=== PATIENT | male | born 1995 | race Caucasian/White ===

== ENCOUNTER 2017-08-06 11:44 | Emergency (ER) | payer SELFPAY ==
[2017-08-06 12:07] VITALS: BP 114/65
[2017-08-06] MEDS ORDERED: Ketorolac INJ* 60 MG/2 ML VIAL IM ONE (13:00)
--- NOTE | 2017-08-06 13:04 | UC ---
Dental HPI - HPI Summary HPI Summary: Pt here w/ mouth wide dental/jaw pain x 2 days (no one tooth hurts more than any other). Worse w/ cold water and chewing meat - is able to drink fluids otherwise and eat soft foods otherwise. Also has some neck soreness with this at times. Fullness in ears at times. Denies fever, chills, ST, rhinorrhea, sneezing, coughing, ab pain, nausea, vomiting, diarrhea. Still has wisdom teeth. 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 No recent trauma to head/jaw. 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 - Allergies/Home Medications Allergies/Adverse Reactions: Allergies Allergy/AdvReac Type Severity Reaction Status Date / Time No Known Allergies Allergy Verified 08/06/17 12:07 PMH/Surg Hx/FS Hx/Imm Hx Previously Healthy: Yes - Surgical History Surgical History: Yes Surgery Procedure, Year, and Place: bilateral tubes to ears aas child - Family History Known Family History: Positive: None - Social History Occupation: Employed Full-time - [employer] Lives: With Family Alcohol Use: Rare Substance Use Type: None Smoking Status (MU): Never Smoked Tobacco Type: Smokeless Tobacco - < 1 tin per day - Immunization History Most Recent Tetanus Shot: unknown Review of Systems Constitutional: Negative Skin: Negative Eyes: Negative ENT: Dental Pain - see HPI Cardiovascular: Negative Gastrointestinal: Negative Genitourinary: Negative Motor: Negative Neurovascular: Negative Musculoskeletal: Other: - see HPI Neurological: Negative Psychological: Negative - denies anxiety, stress but 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 club manager states they planning a wedding in August - they also have an Is Patient Immunocompromised?: No All Other Systems Reviewed And Are Negative: Yes Physical Exam Triage Information Reviewed: Yes Appearance: Well-Appearing, No Pain Distress, Well-Nourished Vital Signs: Initial Vital Signs Temp 99.4 F 08/06/17 12:00 Pulse 61 08/06/17 12:00 Resp 17 08/06/17 12:00 BP 114/65 08/06/17 12:00 Pulse Ox 99 08/06/17 12:00 Vital Signs Reviewed: Yes Eye Exam: Normal Eyes: Positive: Conjunctiva Clear ENT Exam: Normal ENT: Positive: Normal ENT inspection, Hearing grossly normal, Pharynx normal, TMs normal - old opaque scarring - pt admits to h/o myringotomy as child. Negative: Pharyngeal erythema, Nasal congestion, Tonsillar swelling, Tonsillar exudate, Trismus Dental: Positive: Other: - TTP over gingiva of posterior most molars (wisdom teeth areas) - wisdom teeth appear to have broken through a few areas - no erythema, no bleeding, no lesions; other areas of gingiva are NTTP - no edema at all in mouth. Negative: Percussion Tenderness @, Gross Decay/Caries @, Dental Fracture @, Abscess @ Neck exam: Normal Neck: Positive: Supple, Nontender, No Lymphadenopathy Respiratory Exam: Normal Respiratory: Positive: Lungs clear, Normal breath sounds Cardiovascular Exam: Normal Cardiovascular: Positive: RRR Abdominal Exam: Normal Abdomen Description: Positive: Nontender, No Organomegaly, Soft Bowel Sounds: Positive: Present Musculoskeletal Exam: Normal Musculoskeletal: Positive: Strength Intact Neurological Exam: Normal Neurological: Positive: Alert Psychological Exam: Normal Skin Exam: Normal Dental Complaint Course/Dx - Course Course Of Treatment: Pt presents with mouth wide dental/jaw pain. Based on exam and HPI, suspect wisdom teeth are moving, possible impacted. Unfortunately, no panorex available here and CT is not warranted - risk of radiation does not outweigh benefit of this type of image - recommend f/u w/ dentist/oral surgeon for panorex. Reviewed danger s/sx of when to go to ED. Pt agrees w/ plan. No signs of infection so no anbx started today. - Differential Dx/Diagnosis Provider Diagnoses: Oral pain Discharge - Discharge Plan Condition: Stable Disposition: HOME Prescriptions: Cyclobenzaprine TAB* [Flexeril 10 MG TAB*] 10 mg PO TID PRN #15 tab PRN Reason: Pain Ibuprofen TAB* [Motrin TAB* 600 MG] 600 mg PO Q6H PRN #20 tab PRN Reason: Pain Patient Education Materials: Toothache (ED), Muscle Strain (ED) Referrals: Berhane Brizuela MD [Doctor of Dental Medicine] - Additional Instructions: You appear to be having issue with your wisdom teeth and/or possible muscle strain from clenching jaw. Either way, you can follow-up with your dentist for imaging to better assess your wisdom teeth status. If it is necessary for you to see an oral surgeon, contact information has been included here. In the meantime, you may continue fluids and soft foods to prevent dehydration and malnourishment. You may also take ibuprofen 600mg every 6 hours for pain - take with food. You were also given a muscle relaxer you may try at night for pain - do not take prior to working, driving as this may cause drowsiness. *If you develop headache, neck stiffness, fever, chills, vomiting, chest pain, difficulty breathing, go to ED
== END 2017-08-06 13:16 | disposition home or self-care (01) ==
LOC: UCEAST 11:44
DX: K13.79 Other lesions of oral mucosa (principal)
CPT/HCPCS: 96372; 99212; G0463; J1885

== ENCOUNTER 2017-08-07 14:46 | Emergency (ER) | payer BC ==
[2017-08-07 15:00] VITALS: BP 120/67
--- NOTE | 2017-08-07 21:25 | ED ---
Throat Pain/Nasal Congestion - HPI Summary HPI Summary: Patient presents to the ED with dental pain bilaterally which radiates into the ears x 7 days. [facility] given [facility] relaxers with relief. However, since he was unable to take during the day while he was working and noticed the pain return. He states he had a mild MONTERO earlier this afternoon, but that has resolved. He denies knowingly clenching his teeth, grinding his teeth or sinus infections. He has never had dental infections before, but has not had good dental care. Denies other symptoms including ear pain, eye pain or stiff neck. Denies fevers, sweats or chills. - History of Current Complaint Chief Complaint: EDDentalPain Time Seen by Provider: 08/07/17 15:13 Hx Obtained From: Patient Onset/Duration: Sudden Onset Severity: Mild Associated Signs And Symptoms: Positive: Negative - Allergies/Home Medications Allergies/Adverse Reactions: Allergies Allergy/AdvReac Type Severity Reaction Status Date / Time No Known Allergies Allergy Verified 08/06/17 12:07 PMH/Surg Hx/FS Hx/Imm Hx Previously Healthy: Yes - Surgical History Surgery Procedure, Year, and Place: bilateral tubes to ears aas child - Immunization History Hx Pertussis Vaccination: No Immunizations Up to Date: Unable to Obtain/Confirm Infectious Disease History: Yes Infectious Disease History: Denies: History Other Infectious Disease, Traveled Outside the [place] in Last 30 Days - Family History Known Family History: Positive: None - Social History Occupation: Employed Full-time Lives: With Family Alcohol Use: Rare Hx Substance Use: No Substance Use Type: Reports: None Hx Tobacco Use: No Smoking Status (MU): Never Smoked Tobacco Type: Smokeless Tobacco - < 1 tin per day Review of Systems Constitutional: Negative Eyes: Negative Positive: Dental Pain Cardiovascular: Negative Respiratory: Negative Positive: no symptoms reported, see HPI Musculoskeletal: Negative Neurological: Negative Psychological: Normal All Other Systems Reviewed And Are Negative: Yes Physical Exam Triage Information Reviewed: Yes Vital Signs On Initial Exam: Initial Vitals Temp Pulse Resp BP Pulse Ox 99.0 F 89 20 120/67 98 08/07/17 14:57 08/07/17 14:57 08/07/17 14:57 08/07/17 14:57 08/07/17 14:57 Vital Signs Reviewed: Yes Appearance: Positive: Well-Appearing, Well-Nourished Skin: Positive: Warm, Skin Color Reflects Adequate Perfusion Head/Face: Positive: Normal Head/Face Inspection Eyes: Positive: EOMI, PAPI Neck: Positive: Supple, No Lymphadenopathy Respiratory/Lung Sounds: Positive: Clear to Auscultation, Breath Sounds Present Cardiovascular: Positive: Normal, RRR, Pulses are Symmetrical in both Upper and Lower Extremities Musculoskeletal: Positive: Normal, Strength/ROM Intact Neurological: Positive: Speech Normal Psychiatric: Positive: Normal AVPU Assessment: Alert - Ariana Coma Scale Coma Scale Total: 15 Diagnostics - Vital Signs Vital Signs Temp Pulse Resp BP Pulse Ox 08/07/17 14:57 99.0 F 89 20 120/67 98 - Laboratory Lab Statement: Any lab studies that have been ordered have been reviewed, and results considered in the medical decision making process. EENT Course/Dx - Course Course Of Treatment: Patient has been experiencing dental pain x 7 days intermittently. He feels as though it is a "tightening" of the jaw. He was given a muscle relaxer with relief. The pain runs directly through his teeth he states. He denies any known sinus infections. Discussed treatment options with patient. D/t continuing pain located in the teeth - possibly could be an infection. Discussed trying abx and some pain management only as needed at bedtime. He agrees to this plan and will return if the symptoms continue. Ibuprofen is encouraged. - Differential Diagnoses Differential Diagnoses: Mandibular/Maxillary Trauma, Odontogenic Pain, Trigeminal Neuralgia, TMJ Syndrome - Diagnoses Provider Diagnoses: Tooth pain Discharge - Discharge Plan Condition: Stable Disposition: HOME Prescriptions: HYDROcodone/ACETAMIN 5-325 MG* [Hamilton 5-325 TAB*] 1 tab PO Q6H PRN #10 tab MDD 4 PRN Reason: Pain Penicillin VK 500 MG TAB(NF) [Penicillin VK 500 mg Tab(NF)] 500 mg PO QID #28 tab MDD 4 Patient Education Materials: Temporomandibular Disorder (ED), Toothache (ED) Referrals: Carolyn GARCIA,Saad Sánchez [Primary Care Provider] - Additional Instructions: As disccused, I am not sure the source of your pain We will try the antibiotic and some pain control, but if you are not feeling improved or anything becomes worse - or you develop a worsening headache, you need to return immediately. Follow up with ENT: Call for appt. Continue with muscle relaxer as prescribed We will start the Hydrocodone-Acetaminophen 5/325 (NORCO) medication Do not drive or operate machinery with this medication You may want to avoid other activities while on this medication until you know how it affects you If you develop any shortness of breath, altered mental status, confusion, lethargy or decreased or slowed breathing - you need to STOP this medication and return to the ED immediately. PLEASE only take this medication if your pain is not well controlled on TYLENOL alone. However, if you choose to take this medication, you MUST stop the tylenol as this medication has Tylenol within it.
== END 2017-08-07 15:27 | disposition home or self-care (01) ==
LOC: ED 14:46
DX: K08.89 Other specified disorders of teeth and supporting structures (principal)
CPT/HCPCS: 99282

== ENCOUNTER 2024-07-15 07:34 | Observation (INO) ==
[2024-07-15] MEDS ORDERED: Ondansetron 4 mg VIAL 2 MG/ML 2 ml VIAL IV PRN (11:42)
[2024-07-15] MEDS: Pantoprazole VIAL 40 MG VIAL IV ONE (12:17)
[2024-07-15 12:35] LABS: ABS Eosinophils 0.1 10^3/uL (0.0-0.5); ABS Lymphocytes 1.5 10^3/uL (1.0-4.8); ABS Monocytes 0.6 10^3/uL (0.0-1.1); ABS Neutrophils 4.1 10^3/uL (1.5-7.6); Eosinophil % 2.3 %; Hematocrit 37.5 % (38-53); Hemoglobin 11.9 g/dL (13.2-16.3); Lymphocyte % 24.2 %; Mean Corpuscular Hemoglobin 23.5 pg (27-33); Mean Corpuscular Hgb Conc 31.9 g/dL (31-36); Mean Corpuscular Volume 73.6 fL (80-97); Mean Platelet Volume 8.9 fL (7.5-11.2); Nucleated Red Blood Cells % 0.1 %/100WBC (0.0-0.8); Platelet Count 193 10^3/uL (150-450); Red Blood Count 5.09 10^6/uL (4.06-5.63); Red Cell Distribution Width 18.6 % (12-17); White Blood Count 6.4 10^3/uL (3.6-10.2)
[2024-07-15 12:46] LABS: Albumin 2.9 g/dL (3.2-5.2); Albumin/Globulin Ratio 1.5 (1-3); C Reactive Protein 1.03 mg/L (<8.01); Calcium 7.9 mg/dL (8.6-10.3); Creatinine, Serum 0.55 mg/dL (0.67-1.17); Potassium 4.2 mmol/L (3.5-5.0); Total Bilirubin 0.3 mg/dL (0.2-1.0); Total Protein 4.9 g/dL (6.4-8.9); eGFR CKD-EPI 137.6 (>60)
[2024-07-15] MEDS: PEG 3000 GI LAVAGE 1 GALLON PO ONE (16:45)
[2024-07-15] MEDS: Morphine 2 MG/ML SYRINGE IV ONE (16:48)
[2024-07-16 06:38] LABS: ABS Eosinophils 0.2 10^3/uL (0.0-0.5); ABS Lymphocytes 1.4 10^3/uL (1.0-4.8); ABS Monocytes 0.3 10^3/uL (0.0-1.1); Albumin 2.6 g/dL (3.2-5.2); Albumin/Globulin Ratio 1.3 (1-3); Calcium 7.7 mg/dL (8.6-10.3); Creatinine, Serum 0.61 mg/dL (0.67-1.17); Eosinophil % 5.6 %; Hematocrit 36.3 % (38-53); Hemoglobin 11.5 g/dL (13.2-16.3); Lymphocyte % 34.5 %; Magnesium 1.8 mg/dL (1.9-2.7); Mean Corpuscular Hemoglobin 23.2 pg (27-33); Mean Corpuscular Hgb Conc 31.5 g/dL (31-36); Mean Corpuscular Volume 73.4 fL (80-97); Mean Platelet Volume 9.5 fL (7.5-11.2); Nucleated Red Blood Cells % 0.1 %/100WBC (0.0-0.8); Platelet Count 186 10^3/uL (150-450); Potassium 4.3 mmol/L (3.5-5.0); Red Blood Count 4.94 10^6/uL (4.06-5.63); Red Cell Distribution Width 18.8 % (12-17); Total Bilirubin 0.4 mg/dL (0.2-1.0); Total Protein 4.6 g/dL (6.4-8.9); eGFR CKD-EPI 133.3 (>60)
[2024-07-16] MEDS ORDERED: Flumazenil 0.5 mg/5 ml 0.1 MG/ML 5 ml VIAL IV PRN (07:50)
[2024-07-16] MEDS ORDERED: Naloxone 0.4 mg VIAL 0.4 mg/ml 1 ml VIAL IV PUSH PRN (07:50)
[2024-07-16] MEDS ORDERED: Pantoprazole VIAL 40 MG VIAL IV SCH (09:00)
[2024-07-16] MEDS ORDERED: Magnesium Sulfate IV 1GM/100ML 1 GM/100 ML BAG IV ONE (09:42)
[2024-07-16] MEDS ORDERED: Midazolam 10 mg/10 ml VIAL 1 mg/ml 10 ml VIAL (10 mg) ONE (11:26)
[2024-07-16] MEDS ORDERED: fentaNYL 100 mcg/2 ml 50 MCG/ML VIAL ONE (11:26)
[2024-07-16] MEDS: fentaNYL 100 mcg/2 ml 50 MCG/ML VIAL IV SLOW PU ONE (12:57)
[2024-07-16] MEDS: Lactated Ringers 1000 ml BAG 1,000 ML IV ONE (12:58)
[2024-07-16] MEDS: Midazolam 10 mg/10 ml VIAL 1 mg/ml 10 ml VIAL (10 mg) IV SLOW PU ONE (12:58)
[2024-07-16] MEDS: Ondansetron 4 mg VIAL 2 MG/ML 2 ml VIAL IV ONE (12:58)
[2024-07-16 14:27] VITALS: BP 112/77
== END 2024-07-16 15:24 | disposition home or self-care (01) ==
LOC: EDHOLD 07:34 → ED 07:34 → MED 18:32
PROVIDERS: ADMIT Student in an Organized Health Care Education/Training Program; ATTEND Student in an Organized Health Care Education/Training Program